=== PATIENT | female | born 1960 | race African-American/Black ===

== ENCOUNTER 2017-05-01 07:51 | Inpatient (IN) | payer MEDICAID ==
[2017-05-01] MEDS ORDERED: fentaNYL 100 MCG/2 ML SDV ONE (08:06)
[2017-05-01] MEDS ORDERED: fentaNYL 250 MCG/5 ML SDV ONE (08:13)
[2017-05-01] MEDS ORDERED: Rocuronium 50 MG/5 ML Vial ONE (08:13)
[2017-05-01] MEDS ORDERED: Dexamethasone 4 MG/ML SDV ONE (08:13)
[2017-05-01] MEDS ORDERED: Succinylcholine/Normal Saline 200 MG/10 ML Syringe ONE (08:13)
[2017-05-01] MEDS ORDERED: Ondansetron 4 MG/2 ML SDV ONE (08:13)
[2017-05-01] MEDS ORDERED: Neostigmine Methylsulfate 1 MG/ML 5 ML Syringe ONE (08:13)
[2017-05-01] MEDS ORDERED: Propofol 200 MG/20 ML SDV ONE (08:13)
[2017-05-01] MEDS ORDERED: Bupivacaine 0.5%/EPINEPHrine 1:200,000 50 ML MDV ONE (08:15)
[2017-05-01] MEDS ORDERED: Meropenem 500 MG SDV ONE (08:15)
[2017-05-01] MEDS ORDERED: fentaNYL 25 MCG/HR Transdermal Patch TRDERM SCH (08:30)
[2017-05-01] MEDS ORDERED: Dextrose 5%-Lactated Ringers 1,000 ML IV SCH (08:30)
[2017-05-01] MEDS ORDERED: Albuterol/Ipratropium 3.0-0.5 MG/3 ML Neb Soln NEB ONE (08:30)
[2017-05-01] MEDS ORDERED: Labetalol 20 MG/4 ML Syringe ONE (08:38)
[2017-05-01] MEDS: cefOXitin 2 GM in Sodium Chloride 0.9% 50 ML IV ONE ×2 (11:22→20:29)
[2017-05-01] MEDS ORDERED: Naloxone 0.4 MG/ML SDV ONE (12:13)
[2017-05-01] MEDS ORDERED: Lactated Ringers 1,000 ML IV ONE (12:20)
[2017-05-01] MEDS ORDERED: HYDROmorphone/Normal Saline 15 MG/30 ML PCA IV PRN (12:37)
[2017-05-01] MEDS ORDERED: Naloxone 0.4 MG/ML SDV IV PRN (12:58)
[2017-05-01] MEDS ORDERED: Lactated Ringers 500 ML IV ONE (13:00)
[2017-05-01] MEDS ORDERED: Albuterol/Ipratropium 3.0-0.5 MG/3 ML Neb Soln INH PRN (13:04)
[2017-05-01] MEDS ORDERED: Ondansetron 4 MG/2 ML SDV IV PRN (13:05)
[2017-05-01] MEDS: Albuterol/Ipratropium 3.0-0.5 MG/3 ML Neb Soln INH SCH ×2 (15:00→22:22)
[2017-05-01] MEDS: Dextrose 5%-Lactated Ringers 1,000 ML IV SCH ×2 (16:37→22:50)
[2017-05-01] MEDS: Pantoprazole 40 MG Tab.CR PO SCH (17:31)
[2017-05-01] MEDS: ceFAZolin 2 GM in Sodium Chloride 0.9% 50 ML IV SCH (17:31)
[2017-05-01] MEDS: Labetalol 20 MG/4 ML Syringe IVPUSH PRN ×3 (17:33→23:50)
[2017-05-01] MEDS: VERIFY FENT PATCH TOP SCH ×2 (17:47→20:30)
[2017-05-01] MEDS: Zolpidem 5 MG Tab PO PRN (22:22)
[2017-05-02] MEDS: ceFAZolin 2 GM in Sodium Chloride 0.9% 50 ML IV SCH ×2 (02:09→10:30)
[2017-05-02] MEDS: Dextrose 5%-Lactated Ringers 1,000 ML IV SCH (05:22)
[2017-05-02] MEDS: Albuterol/Ipratropium 3.0-0.5 MG/3 ML Neb Soln INH SCH ×4 (07:00→20:42)
[2017-05-02] MEDS: Pantoprazole 40 MG Tab.CR PO SCH (08:10)
[2017-05-02] MEDS: Lisinopril 20 MG Tab PO SCH (08:10)
[2017-05-02] MEDS: VERIFY FENT PATCH TOP SCH (08:17)
[2017-05-02] MEDS: Acetaminophen/oxyCODONE 325-5 MG Tab PO PRN ×2 (16:21→20:53)
[2017-05-02] MEDS: Gabapentin 300 MG Cap PO SCH ×2 (16:21→21:03)
[2017-05-02] MEDS: Formoterol/Mometasone 100-5 MCG 8.8 GM Inhaler IH SCH (20:44)
[2017-05-02] MEDS: Zolpidem 5 MG Tab PO PRN (20:53)
[2017-05-02] MEDS: Sennosides 8.6 MG Tab PO SCH (20:53)
[2017-05-02] MEDS ORDERED: Oxybutynin 5 MG Tab PO SCH (21:00)
[2017-05-02] MEDS ORDERED: OXYBUTYNIN 5 MG/5 ML PO SCH (21:00)
[2017-05-03] MEDS: Acetaminophen/oxyCODONE 325-5 MG Tab PO PRN (06:24)
[2017-05-03] MEDS: Gabapentin 300 MG Cap PO SCH (06:24)
[2017-05-03] MEDS: Albuterol/Ipratropium 3.0-0.5 MG/3 ML Neb Soln INH SCH ×2 (07:09→10:50)
[2017-05-03] MEDS: Formoterol/Mometasone 100-5 MCG 8.8 GM Inhaler IH SCH (07:16)
[2017-05-03] MEDS: Pantoprazole 40 MG Tab.CR PO SCH (08:25)
[2017-05-03] MEDS: Lisinopril 20 MG Tab PO SCH (08:26)
[2017-05-03] MEDS: Sennosides 8.6 MG Tab PO SCH (08:26)
[2017-05-03] MEDS ORDERED: Aspirin 81 MG Tab.EC PO SCH (09:00)
[2017-05-03 10:32] VITALS: BP 109/63
--- NOTE | 2017-05-04 10:48 | PN ---
DATE OF SERVICE: 05/02/2017 The patient has been afebrile with stable vital signs status post an open repair of incisional hernia yesterday. Clinically, she has done well. Urine output has been satisfactory. We will advance the patient with a regular diet today and oral pain medication. She may be ready for discharge home tomorrow. Jaycob Begum MD /[id number]
--- NOTE | 2017-05-05 10:58 | DISCH ---
FINAL DIAGNOSES: 1. Recurrent incarcerated incisional hernia. 2. Extensive intraabdominal adhesions. 3. History of type 2 diabetes mellitus in remission, status post gastric bypass. 4. History of hypertension. 5. Osteoarthritis. 6. Hypercholesterolemia. OPERATIVE PROCEDURE: Done on 05/03 was a diagnostic laparoscopy converted to laparotomy with: 1. Repair of recurrent incarcerated incisional hernia with mesh. 2. Placement of Interceed mesh to limit recurrent adhesion formation. HOSPITAL COURSE: This is a 56-year-old female who is presenting with a recurrent incisional hernia that is located at what would likely be adjacent to the previous mesh placed. At the time of diagnostic laparoscopy, she was noted to have florid adhesions preventing a laparoscopic completion of the procedure. Given this, a midline incision was made over the hernia and repaired with mesh. There were quite extensive adhesions in that area, so an Interceed mesh was placed to displace the small bowel away from the pelvic and abdominal wall to limit recurrent adhesion formation. Over this area, a polypropylene Ventrio ST hernia patch was placed. Postoperatively, the patient did well. Pain control appeared to be satisfactory with Percocet 5/325. Otherwise, she will continue her home medications. She has a fentanyl patch on which we will replace this morning and then have her keep it on 4 days as well. Follow up with Dr. Begum at [facility] on 05/13.
--- NOTE | 2017-05-07 21:21 | OR ---
DATE OF PROCEDURE: 05/01/2017 PREOPERATIVE DIAGNOSIS: Recurrent incarcerated incisional hernia. POSTOPERATIVE DIAGNOSES: 1. Recurrent incarcerated incisional hernia. 2. Extensive intraabdominal adhesions. OPERATIVE PROCEDURES: Diagnostic laparoscopy converted to laparotomy with; 1. Repair of recurrent incarcerated incisional hernia with mesh (41411, [id number]). 2. Placement of Interceed mesh to limit recurrent adhesion formation between pelvic and abdominal wall underlying viscera (65947). ANESTHESIA: General. WAREHOUSING TECHNICIAN: Bernie Hernández PA-C and LAUREN Singh student. INDICATION FOR PROCEDURE: This is a 56-year-old female presenting with a large incarcerated recurrent incisional hernia. Plan is to proceed with a laparoscopy and laparotomy if necessary. Potential risks of the procedure including bleeding, infection, injury to underlying viscera, problems with mesh becoming infected or hernia recurring as well as remote possibility of cardiopulmonary, septic, or hemorrhagic complications leading to were all discussed, and the patient wishes to proceed. DETAILS OF PROCEDURE: The patient was taken to the operating room and placed in a supine position. After general endotracheal anesthesia was induced, a Hare catheter was inserted and the abdomen prepped and draped. The right lateral abdomen had not been involved in previous operative procedures. A transverse incision was made. The peritoneal cavity entered under direct vision with Optiview trocar and inflated to 15 mmHg pressure with CO2. Following placement of the scope once again it was evident that there were nina adhesions in all directions from the entrance point and it was felt best to proceed with an open laparotomy. The scope and trocar were then removed. Portion of the previous midline incision extending from just above what would be the level of the umbilicus (the patient previously had her umbilicus removed) down toward the lower abdomen was made and carried down through the skin and subcutaneous tissue. The hernia site was then identified and the hernia sac dissected down to the level of fascia in all directions. The hernia sac was then opened and contained some incarcerated small bowel within it and this was dissected free and at that point, the section down toward the pelvis and along the abdominal wall, laterally in each direction as well superiorly. It was then accomplished on the left side such that the hernia site could be adequately covered by the mesh. An 11.[address] hernia patch was then selected and roughly 5 cm intervals along its circumference, 2-0 Vicryl suture was placed on the polypropylene side of the mesh. The mesh was then soaked in antibiotic-containing saline solution and at that point, the Interceed mesh was placed across the area of dissection. This would help prevent recurrent adhesion formation between the pelvis and abdominal wall and the underlying small bowel. The mesh was then placed in intraperitoneal location and the premarked location small stab wounds were made where the mesh sutures were then pulled up, thus fixing the mesh in general position, as these were then tied and then the mesh additionally fixed to the abdominal wall with titanium tacking screws placed on the underside of the shelf of the mesh. At that point, no further problems were noted. The abdomen was irrigated with antibiotic-containing saline solution. The midline fascia was approximated with #2-0 Vicryl stitch. The subcutaneous tissue with some 2-0 Vicryl stitch and the skin with carlos. Dressing was applied. The patient was taken to the recovery room in satisfactory condition. Physician advertising sales assistant, Bernie Hernández, played an essential role in assisting in this case, helping to position the patient, help retract structures as needed as well as suturing and stapling when indicated. Her presence improved the patient's safety and decreased the operative time. Jaycob Begum MD /[id number]
== END 2017-05-03 11:25 | disposition home or self-care (01) | DRG 354 ==
LOC: JP.SDSSCHI 07:51 → JP.SDS 07:51 → EDSTATUS 08:30 → JP.2SS 12:20
PROVIDERS: ADMIT Surgery; ATTEND Surgery
PROC: 3E0M05Z Introduction of Adhesion Barrier into Peritoneal Cavity, Open Approach (ICD-10-PCS; principal; 2017-05-01)
PROC: 0WUF0JZ Supplement Abdominal Wall with Synthetic Substitute, Open Approach (ICD-10-PCS; principal; 2017-05-01)
DX: K43.0 Incisional hernia with obstruction, without gangrene (principal); K91.2 Postsurgical malabsorption, not elsewhere classified; I10 Essential (primary) hypertension; E53.8 Deficiency of other specified B group vitamins; F32.9 Major depressive disorder, single episode, unspecified; G89.29 Other chronic pain; Z87.891 Personal history of nicotine dependence; Z79.82 Long term (current) use of aspirin; E11.9 Type 2 diabetes mellitus without complications; Z98.84 Bariatric surgery status; Z96.649 Presence of unspecified artificial hip joint; M81.0 Age-related osteoporosis without current pathological fracture; J45.909 Unspecified asthma, uncomplicated; Z53.31 Laparoscopic surgical procedure converted to open procedure; K66.0 Peritoneal adhesions (postprocedural) (postinfection)
CPT/HCPCS: 88302; 94640; 94640-76; 94762; A9270-GY; C1781; J0690; J0694; J1100; J1170; J2185; J2310; J2405; J2704; J3010; J7042; J7050; J7120; J7620